=== PATIENT | female | born 1990 | race Caucasian/White ===

== ENCOUNTER 2021-05-09 10:51 | Emergency (ER) | payer SELFPAY ==
[2021-05-09] MEDS ORDERED: Sodium Chloride 0.9% 10 ML Syringe FLUSH PRN (11:14)
[2021-05-09] MEDS ORDERED: Sodium Chloride 0.9% 1,000 ML IV ONE (11:15)
--- NOTE | 2021-05-09 12:14 | EDM.PDOC ---
ED HPI GENERAL MEDICAL PROBLEM - General Chief Complaint: General Stated Complaint: NOT FEELING WELL,PASSED OUT AT WORK Time Seen by Provider: 05/09/21 11:44 Source of Information: Reports: Patient History Limitations: Reports: No Limitations - History of Present Illness INITIAL COMMENTS - FREE TEXT/NARRATIVE: Patient presents for evaluation after a syncopal episode at work. It was her first day at the job and she was being instructed on working in the [employer]. She was standing near a fryer with waves of heat coming toward her and started to feel faint. She sat down but almost right away slumped to her side and was "out" for a few seconds. She didn't fall off the chair or have incontinence but says she did need to pass diarrhea shortly afterward. She has had occasional diarrhea the past couple days. She says she has felt very fatigued for about a week but thought it was just due to taking care of her 11-month old baby and not sleeping well at night. Last night she slept well from 7:30pm-6:00am so thought she could go to work okay. She says she has also noticed feeling lightheaded often when standing up after sitting or lying for awhile. She episodes lasts 30-60 seconds and has been for the last few days. She has only drank about 2 cups of water a day the last few days and normally has about 5 she says. She usually drinks a Monster drink, soda and milk but doesn't like water much. Today she noticed two red spots in her left eye. She has had a sore throat/neck on right side for a couple days. She has had several small spots in clusters on left hand for about a week. 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 [No Known Home Meds] 05/09/21 [History] ED ROS GENERAL - Review of Systems Review Of Systems: See Below Constitutional: Reports: Chills (alternating with hot for a couple days), Fatigue. Denies: Fever HEENT: Reports: Throat Pain. Denies: Ear Pain, Hearing Loss, Throat Swelling, Vision Change Respiratory: Denies: Shortness of Breath, Cough Cardiovascular: Reports: Lightheadedness, Syncope. Denies: Chest Pain Endocrine: Reports: Fatigue GI/Abdominal: Reports: Diarrhea. Denies: Abdominal Pain, Constipation, Nausea, Vomiting : Denies: Dysuria, Flank Pain Musculoskeletal: Denies: Neck Pain, Shoulder Pain, Arm Pain, Back Pain, Hand Pain Skin: Denies: Cyanosis, Jaundice, Mottled, Pallor, Diaphoresis Neurological: Reports: Syncope. Denies: Confusion, Numbness, Seizure, Trouble Speaking, Difficulty Walking Psychiatric: Denies: Agitation, Anxiety, Confusion ED EXAM, GENERAL - Physical Exam Exam: See Below Exam Limited By: No Limitations General Appearance: Alert, WD/WN, No Apparent Distress Eye Exam: Bilateral Eye: EOMI, Normal Inspection, PERRL Ears: Normal External Exam, Hearing Grossly Normal Ear Exam: Bilateral Ear: Auricle Normal Nose: Normal Inspection, No Blood Throat/Mouth: Normal Lips, Normal Teeth, Normal Voice, No Airway Compromise, Other (posterior pharynx is inflamed with white exudate; worse on right) Head: Atraumatic, Normocephalic Neck: Full Range of Motion, Lymphadenopathy (R) (tender to palpation). No: Lymphadenopathy (L) Respiratory/Chest: No Respiratory Distress, Lungs Clear, Normal Breath Sounds, No Accessory Muscle Use Cardiovascular: Normal Peripheral Pulses (all present and equal but a little weak), Regular Rate, Rhythm, No Edema, No Gallop, No Murmur Peripheral Pulses: 1+: Carotid (L), Carotid (R), Radial (L), Radial (R), Posterior Tibial (L), Posterior Tibial (R) GI/Abdominal: Normal Bowel Sounds, Soft, No Organomegaly, No Distention, No Abnormal Bruit, No Mass, Tender (slightly in LLQ) Back Exam: Normal Inspection, Full Range of Motion. No: CVA Tenderness (L), CVA Tenderness (R) Extremities: Normal Range of Motion, Non-Tender Neurological: Alert, Oriented, Normal Cognition, No Motor/Sensory Deficits Psychiatric: Normal Affect, Normal Mood Skin Exam: Warm, Dry, Intact, Pallor (general), Rash (appearance somewhat like rash on dorsal left hand; 1-2 mm erythematous macules and papules in clusters on dorsal 3rd, 4th, 5th fingers.). No: Petechiae Lymphatic: Adenopathy (right anterior neck) Course - Vital Signs Last Recorded V/S: Last Vital Signs Temp 97.4 F 05/09/21 13:17 Pulse 97 05/09/21 13:17 Resp 16 05/09/21 13:17 BP 110/71 05/09/21 13:17 Pulse Ox 100 05/09/21 13:17 - Orders/Labs/Meds Orders: Active Orders 24 hr Category Date Time Status STREP SCRN A RAPID W CULT CONF [RM] Stat Lab 05/09/21 12:00 Ordered Peripheral IV Insertion Adult [OM.PC] Routine Oth 05/09/21 11:14 Ordered EKG 12 Lead [EK] Stat Ther 05/09/21 11:14 Ordered Labs: Laboratory Tests 05/09/21 05/09/21 05/09/21 Range/Units 11:14 11:14 11:40 WBC 7.83 (5.00-10.00) 10^3/uL RBC 4.29 (3.80-5.50) 10^6/uL Hgb 12.5 (12.0-16.0) g/dL Hct 37.8 (37.0-47.0) % MCV 88.1 (82.0-92.0) fL MCH 29.1 (27.0-31.0) pg MCHC 33.1 (32.0-36.0) g/dL RDW 13.5 (11.5-14.5) % Plt Count 129 L (150-400) 10^3/uL MPV 10.9 H (7.4-10.4) fL Immature Gran % (Auto) 0.1 (0.0-5.0) % Neut % (Auto) 70.3 H (50.0-70.0) % Lymph % (Auto) 16.7 L (20.0-40.0) % [place] % (Auto) 12.5 H (2.0-8.0) % Eos % (Auto) 0.3 L (1.0-3.0) % Baso % (Auto) 0.1 (0.0-1.0) % Neut # (Auto) 5.50 (2.50-7.00) 10^3/uL Lymph # (Auto) 1.31 (1.00-4.00) 10^3/uL [place] # (Auto) 0.98 H (0.10-0.80) 10^3/uL Eos # (Auto) 0.02 L (0.10-0.30) 10^3/uL Baso # (Auto) 0.01 (0.00-0.10) 10^3/uL Immature Gran # (Auto) 0.01 (0.00-0.50) 10^3/uL Sodium (136-145) mmol/L Potassium (3.5-5.1) mmol/L Chloride (98-107) mmol/L Carbon Dioxide (21.0-32.0) mmol/L Anion Gap (5-15) mmol/L BUN (7-18) mg/dL Creatinine (0.51-1.17) mg/dL Est Cr Clr Drug Dosing mL/min Estimated GFR (MDRD) mL/min Glucose (70-140) mg/dL Calcium (8.7-10.3) mg/dL Total Bilirubin (0.2-1.0) mg/dL AST (15-37) U/L ALT (14-63) U/L Alkaline Phosphatase (46-116) U/L Total Protein (6.4-8.2) g/dL Albumin (3.40-5.00) g/dL Specimen Type Urinvoid Urine Color Dark yellow H (YELLOW) Urine Appearance Clear (CLEAR) Urine pH 6.5 (5.0-9.0) Ur Specific [place] 1.020 (1.005-1.030) Urine Protein 30 H (NEGATIVE) mg/dL Urine Glucose (UA) Negative (NEGATIVE) mg/dL Urine Ketones Trace H (NEGATIVE) mg/dL Urine Occult Blood Negative (NEGATIVE) Urine Nitrite Negative (NEGATIVE) Urine Bilirubin Negative (NEGATIVE) Urine Urobilinogen 1.0 (0.2-1.0) E.U./dL Ur Leukocyte Esterase Negative (NEGATIVE) Urine RBC 0-5 (0-5) /HPF Urine WBC 5-10 H (0-5) /HPF Ur Epithelial Cells Many H /LPF Urine Bacteria Rare (NONE TO FEW) /HPF Urine HCG, Qual Negative (NEGATIVE) 05/09/21 Range/Units 12:00 WBC (5.00-10.00) 10^3/uL RBC (3.80-5.50) 10^6/uL Hgb (12.0-16.0) g/dL Hct (37.0-47.0) % MCV (82.0-92.0) fL MCH (27.0-31.0) pg MCHC (32.0-36.0) g/dL RDW (11.5-14.5) % Plt Count (150-400) 10^3/uL MPV (7.4-10.4) fL Immature Gran % (Auto) (0.0-5.0) % Neut % (Auto) (50.0-70.0) % Lymph % (Auto) (20.0-40.0) % [place] % (Auto) (2.0-8.0) % Eos % (Auto) (1.0-3.0) % Baso % (Auto) (0.0-1.0) % Neut # (Auto) (2.50-7.00) 10^3/uL Lymph # (Auto) (1.00-4.00) 10^3/uL [place] # (Auto) (0.10-0.80) 10^3/uL Eos # (Auto) (0.10-0.30) 10^3/uL Baso # (Auto) (0.00-0.10) 10^3/uL Immature Gran # (Auto) (0.00-0.50) 10^3/uL Sodium 137 (136-145) mmol/L Potassium 3.9 (3.5-5.1) mmol/L Chloride 102 (98-107) mmol/L Carbon Dioxide 25.9 (21.0-32.0) mmol/L Anion Gap 13.0 (5-15) mmol/L BUN 7 (7-18) mg/dL Creatinine 0.69 (0.51-1.17) mg/dL Est Cr Clr Drug Dosing 110.59 mL/min Estimated GFR (MDRD) > 60 mL/min Glucose 92 (70-140) mg/dL Calcium 8.2 L (8.7-10.3) mg/dL Total Bilirubin 0.2 (0.2-1.0) mg/dL AST 18 (15-37) U/L ALT 30 (14-63) U/L Alkaline Phosphatase 100 (46-116) U/L Total Protein 7.1 (6.4-8.2) g/dL Albumin 3.38 L (3.40-5.00) g/dL Specimen Type Urine Color (YELLOW) Urine Appearance (CLEAR) Urine pH (5.0-9.0) Ur Specific [place] (1.005-1.030) Urine Protein (NEGATIVE) mg/dL Urine Glucose (UA) (NEGATIVE) mg/dL Urine Ketones (NEGATIVE) mg/dL Urine Occult Blood (NEGATIVE) Urine Nitrite (NEGATIVE) Urine Bilirubin (NEGATIVE) Urine Urobilinogen (0.2-1.0) E.U./dL Ur Leukocyte Esterase (NEGATIVE) Urine RBC (0-5) /HPF Urine WBC (0-5) /HPF Ur Epithelial Cells /LPF Urine Bacteria (NONE TO FEW) /HPF Urine HCG, Qual (NEGATIVE) Meds: Medications Discontinued Medications Generic Name Dose Route Start Last Admin Trade Name Freq PRN Reason Stop Dose Admin Sodium Chloride 1,000 mls @ 999 mls/hr 05/09/21 11:15 05/09/21 11:44 Normal Saline IV 05/09/21 12:15 999 mls/hr .BOLUS ONE Administration Sodium Chloride 10 ml 05/09/21 11:14 Sodium Chloride 0.9% 10 Ml Syringe FLUSH Q8HR PRN keep vein open - Re-Assessments/Exams Free Text/Narrative Re-Assessment/Exam: 05/09/21 12:41 Rapid strep A is positive. A liter of NS given IV. 05/09/21 13:18 EKG shows NSR. Discussed findings and recommendations with patient. She hasn't been on any antibiotics recently. Rx for Amoxicillin 500 mg #30, 1 po tid x 10 days. Discharged to home in stable condition. 05/09/21 13:22 Platelet count in second CBC is 129. First draw clotted so was rerun. Departure - Departure Time of Disposition: 13:22 Disposition: Home, Self-Care 01 Condition: Good Clinical Impression: Strep throat, Dehydration symptoms Syncope Qualifiers: Encounter type: initial encounter - Discharge Information Instructions: Strep Throat, Adult, [id number], Syncope, [id number] Referrals: Xiomy Zhao MD [Primary Care Provider] - Forms: ED Department Discharge Additional Instructions: Drink 8 cups of water daily. Take the Amoxicillin as directed. Follow up with your PCP if symptoms persist or worsen, or if the spots on your hands and eye don't resolve over the next few days. Sepsis Event Note (ED) - Evaluation Sepsis Screening Result: No Definite Risk - Focused Exam Vital Signs: Vital Signs Temp Pulse Resp BP Pulse Ox 05/09/21 13:17 97.4 F 97 16 110/71 100 05/09/21 11:02 97.8 F 85 16 120/74 97 - My Orders Last 24 Hours: My Active Orders 05/09/21 11:14 Peripheral IV Insertion Adult [OM.PC] Routine EKG 12 Lead [EK] Stat 05/09/21 12:00 STREP SCRN A RAPID W CULT CONF [RM] Stat - Assessment/Plan Last 24 Hours: My Active Orders 05/09/21 11:14 Peripheral IV Insertion Adult [OM.PC] Routine EKG 12 Lead [EK] Stat 05/09/21 12:00 STREP SCRN A RAPID W CULT CONF [RM] Stat
[2021-05-09 12:35] LABS: CHLORIDE,CL 102 mmol/L (98-107); SODIUM,NA 137 mmol/L (136-145)
== END 2021-05-09 13:35 | disposition home or self-care (01) ==
LOC: KA.ED 11:00
DX: R55 Syncope and collapse (principal); J02.0 Streptococcal pharyngitis; M54.2 Cervicalgia; Z88.2 Allergy status to sulfonamides
CPT/HCPCS: 36415; 80053; 81001; 81025; 85025; 87430; 99283; 99284-25; J7030

== ENCOUNTER 2021-07-14 11:30 | Emergency (ER) | payer MEDICAID ==
--- NOTE | 2021-07-14 11:38 | EDM.PDOC ---
ED HPI GENERAL MEDICAL PROBLEM - General Chief Complaint: General Stated Complaint: SOB/MUCUS Time Seen by Provider: 07/14/21 11:38 Source of Information: Reports: Family History Limitations: Reports: No Limitations - History of Present Illness INITIAL COMMENTS - FREE TEXT/NARRATIVE: Suzanne, 30-year-old female, presents emergency department accompanying her [id number] child with complaint of cough congestion and some shortness of breath. She states this started this past Saturday and has progressed since then. Denies any Covid exposures or risk factors. States her infant became ill with congestion runny nose that is turned purulent and parents that is likely passed on to her. She speaks of some sinus drainage and congestion with head pressure had a mild clicking to her right ear during the week which is resolved at this time. Had some respiratory issues along with congestion with occasional productive cough. Is a smoker, limiting herself the past few days secondary of complaints. Onset: Gradual Onset Date: 07/11/21 Duration: Day(s):, Getting Worse Location: Reports: Head, Chest Quality: Reports: Burning, Pressure Severity: Moderate Improves with: Reports: None Worsens with: Reports: Breathing Context: Reports: Sick Contact Associated Symptoms: Reports: Cough, Shortness of Breath - Related Data Allergies Allergy/AdvReac Type Severity Reaction Status Date / Time Sulfa (Sulfonamide Allergy Other Verified 05/09/21 12:09 Antibiotics) Home Meds: Home Meds Doxycycline Hyclate 100 mg PO BID 10 Days #20 capsule 07/14/21 [Rx] Past Medical History HEENT History: Reports: None Cardiovascular History: Reports: None Other Cardiovascular History: hypotension after 4th baby Respiratory History: Reports: Other (See Below) Other Respiratory History: Had respiratory involvement using breathing treatments as a child (possibly an asthmatic component) likely outgrew, but has had no respiratory involvement since then. Gastrointestinal History: Reports: None Genitourinary History: Reports: None MARBLE FINISHER History: Reports: Musculoskeletal History: Reports: None Neurological History: Reports: None Psychiatric History: Reports: None Endocrine/Metabolic History: Reports: None Hematologic History: Reports: None Oncologic (Cancer) History: Reports: None Dermatologic History: Reports: None - Infectious Disease History Infectious Disease History: Reports: Chicken Pox, Influenza, Novel Coronavirus - Past Surgical History Female Surgical History: Reports: Section, Tubal Ligation Other Female Surgeries/Procedures: x3 Dermatological Surgical History: Reports: Skin Graft Social & Family History - Family History Family Medical History: No Pertinent Family History - Tobacco Use Tobacco Use Status *Q: Current Every Day Tobacco User - Caffeine Use Caffeine Use: Reports: Energy Drinks, Soda ED ROS GENERAL - Review of Systems Review Of Systems: Comprehensive ROS is negative, except as noted in HPI. ED EXAM, GENERAL - Physical Exam Exam: See Below Free Text/Narrative:: Alert, oriented, in no acute distress. HEENT is negative discharge or deformity. PERRLA no icterus no injection is noted. EOM intact. No involvement of the auditory canals or tympanic membranes as far as infectious process there might be slight fluid behind the right TM. Nasal passages are congestion and hypertrophied. Posterior oropharynx shows some exudative drainage with trace erythema and +2 tonsillar tissue. There is no lymphadenopathy of tenderness with no nuchal rigidity. Thorax is very harsh raspy rhonchi with inhalation and exhalation, with peak exhalation inducing a soft wheeze very short in duration. This clears with cough. No flank pain no integument abnormalities. Course - Vital Signs Last Recorded V/S: Last Vital Signs Temp 96.9 F 07/14/21 11:40 Pulse 103 H 07/14/21 11:40 Resp 20 07/14/21 11:40 BP 104/71 07/14/21 11:40 Pulse Ox 97 07/14/21 11:40 - Orders/Labs/Meds Labs: Laboratory Tests 07/14/21 07/14/21 Range/Units 12:10 12:10 WBC 13.07 H (5.00-10.00) 10^3/uL RBC 5.25 (3.80-5.50) 10^6/uL Hgb 15.1 D (12.0-16.0) g/dL Hct 45.8 (37.0-47.0) % MCV 87.2 (82.0-92.0) fL MCH 28.8 (27.0-31.0) pg MCHC 33.0 (32.0-36.0) g/dL RDW 13.0 (11.5-14.5) % Plt Count 177 (150-400) 10^3/uL MPV 11.2 H (7.4-10.4) fL Immature Gran % (Auto) 0.1 (0.0-5.0) % Neut % (Auto) 71.5 H (50.0-70.0) % Lymph % (Auto) 16.0 L (20.0-40.0) % [place] % (Auto) 8.4 H (2.0-8.0) % Eos % (Auto) 3.8 H (1.0-3.0) % Baso % (Auto) 0.2 (0.0-1.0) % Neut # (Auto) 9.34 H (2.50-7.00) 10^3/uL Lymph # (Auto) 2.09 (1.00-4.00) 10^3/uL [place] # (Auto) 1.10 H (0.10-0.80) 10^3/uL Eos # (Auto) 0.50 H (0.10-0.30) 10^3/uL Baso # (Auto) 0.03 (0.00-0.10) 10^3/uL Immature Gran # (Auto) 0.01 (0.00-0.50) 10^3/uL Sodium 139 (136-145) mmol/L Potassium 3.8 (3.5-5.1) mmol/L Chloride 100 (98-107) mmol/L Carbon Dioxide 26.1 (21.0-32.0) mmol/L Anion Gap 16.7 H (5-15) mmol/L BUN 12 (7-18) mg/dL Creatinine 0.70 (0.51-1.17) mg/dL Est Cr Clr Drug Dosing 109.01 mL/min Estimated GFR (MDRD) > 60 mL/min Glucose 138 (70-140) mg/dL Calcium 9.2 (8.7-10.3) mg/dL Total Bilirubin 0.4 (0.2-1.0) mg/dL AST 14 L (15-37) U/L ALT 23 (14-63) U/L Alkaline Phosphatase 95 (46-116) U/L Total Protein 8.5 H (6.4-8.2) g/dL Albumin 3.89 (3.40-5.00) g/dL Departure - Departure Time of Disposition: 12:56 Disposition: Home, Self-Care 01 Condition: Good Clinical Impression: Sinusitis chronic, frontal, Cough in adult, Tobacco abuse - Discharge Information *PRESCRIPTION DRUG MONITORING PROGRAM REVIEWED*: Not Applicable *COPY OF PRESCRIPTION DRUG MONITORING REPORT IN PATIENT VINICIUS: Not Applicable Prescriptions: Doxycycline Hyclate 100 mg PO BID 10 Days #20 capsule Instructions: Sinusitis, Adult Referrals: Barb Barnes MD [Physician] - Forms: ED Department Discharge Additional Instructions: You have a slight elevation in your white count leading towards a bacterial type infection. Chest x-ray was within normal limits but by listening to your breathing the raspiness as well as the drainage in the back of your throat antibiotic treatment will be initiated. This will be sent to [facility] for you to pick pulling machine tender and start today, taking it twice daily for the next 10 days. You need to try stop your smoking at least through this event to help clear your sinuses your sinuses chest. Increase your fluids as much as possible to thin the mucus and help with clearing the production. Tylenol or Motrin for fever or pain. Follow-up with your clinic as needed for recheck at the conclusion of antibiotic or sooner if not improving. Return to the emergency department if worsening. Sepsis Event Note (ED) - Focused Exam Vital Signs: Vital Signs Temp Pulse Resp BP Pulse Ox 07/14/21 11:40 96.9 F 103 H 20 104/71 97 - Problem List & Annotations (1) Sinusitis chronic, frontal SNOMED Code(s): 35554354 Code(s): J32.1 - CHRONIC FRONTAL SINUSITIS Status: Acute Priority: High Current Visit: Yes (2) Cough in adult SNOMED Code(s): 39563196 Code(s): R05 - COUGH Status: Acute Current Visit: Yes (3) Wheezes SNOMED Code(s): 88899206 Code(s): R06.2 - WHEEZING Status: Acute Current Visit: Yes (4) Tobacco abuse SNOMED Code(s): 439798816 Code(s): Z72.0 - TOBACCO USE Status: Acute Current Visit: Yes - Problem List Review Problem List Initiated/Reviewed/Updated: Yes - Assessment/Plan Plan: You have a slight elevation in your white count leading towards a bacterial type infection. Chest x-ray was within normal limits but by listening to your breathing the raspiness as well as the drainage in the back of your throat antibiotic treatment will be initiated. This will be sent to [facility] for you to pick pulling machine tender and start today, taking it twice daily for the next 10 days. You need to try stop your smoking at least through this event to help clear your sinuses your sinuses chest. Increase your fluids as much as possible to thin the mucus and help with clearing the production. Tylenol or Motrin for fever or pain. Follow-up with your clinic as needed for recheck at the conclusion of antibiotic or sooner if not improving. Return to the emergency department if worsening.
--- NOTE | 2021-07-14 12:28 | CR ---
[id number] RAD/RAD Chest PA And Lateral EXAM: FRONTAL AND LATERAL CHEST INDICATION: COUGH, CONGESTION. COMPARISON: None. DISCUSSION: The heart and lungs are normal in appearance. IMPRESSION: 1. Negative exam. Zachary Mcgowan MD 07/14/21 [id number] Thank you for allowing us to participate in the care of your patient.
[2021-07-14 13:01] LABS: ANION GAP 16.7 mmol/L (5-15); CHLORIDE,CL 100 mmol/L (98-107); SODIUM,NA 139 mmol/L (136-145)
== END 2021-07-14 13:10 | disposition home or self-care (01) ==
LOC: KA.ED 11:30
DX: J32.1 Chronic frontal sinusitis (principal); F17.200 Nicotine dependence, unspecified, uncomplicated; Z88.2 Allergy status to sulfonamides
CPT/HCPCS: 36415; 71046; 80053; 85025; 99283; 99283-25

== ENCOUNTER 2022-01-29 16:12 | Emergency (ER) | payer OTHER ==
[2022-01-29] MEDS ORDERED: Bacitracin Oint 30 GM Tube TOP SCH (17:00)
== END 2022-01-29 17:05 | disposition home or self-care (01) ==
LOC: KA.ED 16:12
DX: T22.212A Burn of second degree of left forearm, initial encounter (principal); Z88.2 Allergy status to sulfonamides; Z72.0 Tobacco use; X10.1XXA Contact with hot food, initial encounter
CPT/HCPCS: 99283; A9270-GY

== ENCOUNTER 2022-11-02 08:12 | Emergency (ER) | payer MEDICAID | END 2022-11-02 09:20 | disposition home or self-care (01) | LOC: KA.ED 08:12 | DX: J02.0 Streptococcal pharyngitis (principal); Z88.2 Allergy status to sulfonamides | CPT/HCPCS: 87651-QW; 99283 ==

== ENCOUNTER 2024-08-30 19:12 | Emergency (ER) | payer BC, MEDICAID ==
[2024-08-30 19:54] LABS: BASOPHILS ABSOLUTE AUTO 0.03 10^3/uL (0.00-0.10); BASOPHILS PERCENT AUTO 0.3 % (0.0-1.0); EOSINOPHILS ABSOLUTE AUTO 0.42 10^3/uL (0.10-0.30); EOSINOPHILS PERCENT AUTO 4.9 % (1.0-3.0); HEMATOCRIT 41.2 % (37.0-47.0); HEMOGLOBIN 14.2 g/dL (12.0-16.0); IMMATURE GRAN ABSOLUTE AUTO 0.01 10^3/uL (0.00-0.50); IMMATURE GRAN PERCENT AUTO 0.1 % (0.0-5.0); LYMPHOCYTES ABSOLUTE AUTO 2.65 10^3/uL (1.00-4.00); LYMPHOCYTES PERCENT AUTO 30.7 % (20.0-40.0); MEAN CORPUSCULAR HEMOGLOBIN 31.3 pg (27.0-31.0); MEAN CORPUSCULAR HGB CONC 34.5 g/dL (32.0-36.0); MEAN CORPUSCULAR VOLUME 90.9 fL (82.0-92.0); MEAN PLATELET VOLUME 11.1 fL (7.4-10.4); MONOCYTES ABSOLUTE AUTO 0.95 10^3/uL (0.10-0.80); NEUTROPHILS ABSOLUTE AUTO 4.58 10^3/uL (2.50-7.00); PLATELET COUNT,PLT 153 10^3/uL (150-400); RED BLOOD CELL COUNT 4.53 10^6/uL (3.80-5.50); RED CELL DISTRIBUTION WIDTH 12.5 % (11.5-14.5); WHITE BLOOD CELL COUNT,WBC 8.64 10^3/uL (5.00-10.00)
[2024-08-30] MEDS: Sodium Chloride 0.9% 10 ML Syringe FLUSH PRN (20:07)
[2024-08-30 20:11] LABS: ALBUMIN 3.62 g/dL (3.40-5.00); ANION GAP 12.7 mmol/L (5-15); BILIRUBIN TOTAL 0.3 mg/dL (0.2-1.0); CALCIUM 8.7 mg/dL (8.7-10.3); CARBON DIOXIDE,CO2 24.1 mmol/L (21.0-32.0); CREATININE 0.69 mg/dL (0.51-1.17); EST CRCL DRUG DOSING (CG) 111.72 mL/min; POTASSIUM,K 3.8 mmol/L (3.5-5.1); PROTEIN TOTAL,TP 7.1 g/dL (6.4-8.2)
[2024-08-30] MEDS: Iopamidol 755 Mg/ML 100 ML Bottle IV ONE (20:40)
[2024-08-30] MEDS: Sodium Chloride 0.9% 50 ML IV SCH (20:40)
== END 2024-08-30 21:30 | disposition home or self-care (01) ==
LOC: KA.ED 19:12
DX: K62.5 Hemorrhage of anus and rectum (principal); K59.01 Slow transit constipation; Z86.16 Personal history of COVID-19; Z79.899 Other long term (current) drug therapy; Z88.2 Allergy status to sulfonamides
CPT/HCPCS: 36415; 74177; 80053; 85025; 99284; J3490; Q9967

== ENCOUNTER 2025-04-11 09:17 | Emergency (ER) | payer BC, MEDICAID | END 2025-04-11 10:15 | disposition home or self-care (01) | LOC: KA.ED 09:17 | DX: J02.9 Acute pharyngitis, unspecified (principal); Z86.16 Personal history of COVID-19; Z88.2 Allergy status to sulfonamides; Z79.899 Other long term (current) drug therapy | CPT/HCPCS: 87651; 99283 ==